=== PATIENT | male | born 2000 | race Caucasian/White ===

== ENCOUNTER 2020-10-20 20:18 | Emergency (ER) | payer OTHER ==
[~2020-10-20] VITALS: Ht 175.3 cm; Wt 99.8 kg
== END 2020-10-20 22:45 | disposition home or self-care (01) ==
LOC: ER 20:18
DX: S06.0X0A Concussion without loss of consciousness, initial encounter (principal); S00.83XA Contusion of other part of head, initial encounter; S00.12XA Contusion of left eyelid and periocular area, initial encounter; S00.11XA Contusion of right eyelid and periocular area, initial encounter; M54.2 Cervicalgia; Y04.2XXA Assault by strike against or bumped into by another person, initial encounter; Y93.89 Activity, other specified; Y92.512 Supermarket, store or market as the place of occurrence of the external cause; Y99.8 Other external cause status

== ENCOUNTER 2021-11-28 06:03 | Emergency (ER) | payer OTHER ==
[~2021-11-28] VITALS: Ht 175.3 cm; Wt 108.9 kg
== END 2021-11-28 09:46 | disposition home or self-care (01) ==
LOC: ER 06:03
DX: U07.1 COVID-19 (principal)

== ENCOUNTER 2021-12-22 09:15 | Emergency (ER) | payer OTHER ==
[~2021-12-22] VITALS: Ht 170.2 cm; Wt 104.3 kg
== END 2021-12-22 10:19 | disposition home or self-care (01) ==
LOC: ER 09:15
DX: R05.9 Cough, unspecified (principal)

== ENCOUNTER 2022-02-21 11:57 | Emergency (ER) | payer OTHER ==
[~2022-02-21] VITALS: Ht 172.7 cm; Wt 108.9 kg
== END 2022-02-21 14:29 | disposition home or self-care (01) ==
LOC: ER 11:57
DX: J06.9 Acute upper respiratory infection, unspecified (principal); Z20.822 Contact with and (suspected) exposure to COVID-19